=== PATIENT | female | born 1975 | race Caucasian/White ===

== ENCOUNTER 2017-11-01 07:15 | Emergency (ER) | payer MEDICAID ==
[~2017-11-01] VITALS: Ht 157.5 cm; Wt 63.5 kg
[2017-11-01 07:21] VITALS: Ht 157.5 cm; Wt 63.5 kg
[2017-11-01 08:21] LABS: BASOPHIL % 0.5 % (0-2); PLATELET COUNT 224 x10^3mcL (130-400); RED CELL DISTRIBUTION WIDTH 13.3 % (11.5-14.5)
[2017-11-01 08:32] LABS: CALCIUM 8.5 mg/dL (8.5-10.1); CARBON DIOXIDE 23.6 mmol/L (21-32); CHLORIDE SERUM 105 mmol/L (98-107); CREATININE SERUM 0.6 mg/dL (0.6-1.0); GFR1 > 60 mL/min; GLUCOSE SERUM 106 mg/dL (74-106); POTASSIUM SERUM 3.8 mmol/L (3.5-5.1); SODIUM SERUM 140 mmol/L (136-145)
[2017-11-01 08:36] LABS: ALBUMIN 3.5 g/dL (3.4-5.0); ALKALINE PHOSPHATASE 61 U/L (46-116); ALT/SGPT 33 U/L (14-59); AST/SGOT 23 U/L (15-37); BILIRUBIN TOTAL 0.71 mg/dL (0.20-1.00); TOTAL PROTEIN, SERUM 7.5 g/dL (6.4-8.2)
[2017-11-01 10:40] VITALS: BP 110/66
== END 2017-11-01 10:40 | disposition home or self-care (01) ==
LOC: ED 07:15
PROVIDERS: Emergency Medicine
DX: F41.9 Anxiety disorder, unspecified (principal)
CPT/HCPCS: J0780; J1885; J2060; Q0092

== ENCOUNTER 2018-11-04 08:32 | Emergency (ER) | payer SELFPAY ==
[~2018-11-04] VITALS: Ht 160 cm; Wt 64.9 kg
[2018-11-04 08:45] VITALS: Ht 160 cm; Wt 64.9 kg
[2018-11-04 10:11] VITALS: BP 109/74
== END 2018-11-04 10:00 | disposition home or self-care (01) ==
LOC: ED 08:32
DX: R07.89 Other chest pain (principal); R68.83 Chills (without fever); R11.0 Nausea; R06.02 Shortness of breath
CPT/HCPCS: J1885